=== PATIENT | female | born 2000 | race African-American/Black ===

== ENCOUNTER 2020-01-17 10:48 | Emergency (ER) | payer MEDICAID ==
[2020-01-17] MEDS ORDERED: Loperamide 2 MG Cap PO ONE (11:08)
[2020-01-17] MEDS ORDERED: Sodium Chloride 0.9% 1,000 ML IV ONE (11:08)
[2020-01-17] MEDS ORDERED: Ondansetron 4 MG/2 ML SDV IVPUSH ONE (11:08)
--- NOTE | 2020-01-17 11:12 | EDM.PDOC ---
ED HPI GENERAL MEDICAL PROBLEM - General Chief Complaint: Gastrointestinal Problem Stated Complaint: FOOD POISIONING Time Seen by Provider: 01/17/20 11:00 Source of Information: Reports: Patient History Limitations: Reports: No Limitations - History of Present Illness INITIAL COMMENTS - FREE TEXT/NARRATIVE: HISTORY AND PHYSICAL: History of present illness: Patient is a 19-year-old female who presents to the emergency room with complaints of nausea, vomiting, diarrhea. She reports last evening she was eating chicken at [employer] and shortly afterward started to develop symptoms. She feels like she is having to have bowel movements every 30 minutes. Concerned she has food poisoning. She has generalized abdominal pain which she attributes to having vomiting and diarrhea. Nonspecific in location. She also mentions she has a recently diagnosed teratoma tumor, she is taking Tramadol as needed for this pain. States she just ran out of her Tramadol today. Today's abd ominal pain is no worse than her chronic abdominal pain. Patient denies any fever, chills, headache, change in vision, syncope or near syncope. Denies any chest pain, back pain, shortness of breath or cough. Denies any constipation or dysuria. Has not noted any blood in urine or stool. Review of systems: As per history of present illness and below otherwise all systems reviewed and negative. Past medical history: As per history of present illness and as reviewed below otherwise noncontributory. Surgical history: As per history of present illness and as reviewed below otherwise noncontr ibutory. Social history: See social history for further information Family history: As per history of present illness and as reviewed below otherwise noncontributory. Physical exam: General: Well-developed and well-nourished 19-year-old female. Alert and oriented. Nontoxic-appearing and in no acute distress. HEENT: Atraumatic, normocephalic, pupils equal and reactive bilaterally, negative for conjunctival pallor or scleral icterus, mucous membranes moist, TMs normal bilaterally, throat clear, neck supple, nontender, trachea midline. No drooling or trismus noted. No meningeal signs. No hot potato voice noted. Lungs: Clear to auscultation, breath sounds equal bilaterally, chest nontender. Heart: S1S2, regular rate and rhythm without overt murmur Abdomen: Soft, nondistended, nontender. Negative for masses or hepatosplenomegaly. Negative for costovertebral tenderness. Skin: Intact, warm, dry. No lesions or rashes noted. Hematologic: No petechiae or purpra. Mucosa appropriate color and normal nail bed color and refill. Extremities: Atraumatic, moves all extremities per self without difficulty or deficits, negative for cords or calf pain. Neurovascular unremarkable. Neuro: Awake, alert, oriented. Cranial nerves II through XII unremarkable. Cerebellum unremarkable. Motor and sensory unremarkable throughout. Exam nonfocal. Notes: Improved after IV fluids and medication. She has not had any episodes of vomiting or diarrhea while here. Initially wanted to get a urine but she is asymptomatic and is currently declining wanting to provide a sample. Upon preparing her for discharge she does ask that I refill her tramadol which she has been taking for chronic abdominal pain. I encouraged her to establish care with a primary care provider for this medication refill. We will give her 1 tab while here. Patient is appropriate for discharge. Supportive care measures were reviewed and discussed. Voices understanding and is agreeable to plan of care. Denies any further questions or concerns at this time. Diagnostics: CBC, CMP, Lipase, Therapeutics: IV fluid, Zofran, Imodium Prescription: None Impression: Gastroenteritis Plan: 1. Please use Tylenol and/or Ibuprofen as needed for pain and fever management. 2. Get plenty of Rest. Encourage fluids to prevent dehydration. 3. Please follow up and establish care with a primary care provider. If your symptoms should worsen, new symptoms develop or any of the signs and symptoms we discussed should arise please return to the emergency room or call 911 (if needed). Definitive disposition and diagnosis as appropriate pending reevaluation and review of above. abdomen Pain Score (Numeric/FACES): 8 - Related Data Allergies Allergy/AdvReac Type Severity Reaction Status Date / Time No Known Allergies Allergy Verified 01/17/20 11:07 Home Meds: Home Meds . [No Known Home Meds] 01/17/20 [History] ED ROS GENERAL - Review of Systems Review Of Systems: Comprehensive ROS is negative, except as noted in HPI. ED EXAM, GI/ABD - Physical Exam Exam: See Below (See dictation) Course - Vital Signs Last Recorded V/S: Last Vital Signs Temp 96.0 F L 01/17/20 11:07 Pulse 81 01/17/20 11:07 Resp 18 01/17/20 11:07 BP 126/92 H 01/17/20 11:07 Pulse Ox 97 01/17/20 11:07 - Orders/Labs/Meds Orders: Active Orders 24 hr Category Date Time Status UA RFX ADELA AND CULT IF INDIC [URIN] Stat Lab 01/17/20 11:12 Ordered Sodium Chloride 0.9% [Normal Saline] 1,000 ml Med 01/17/20 11:08 Active IV STAT traMADol [Ultram] Med 01/17/20 12:06 Once 50 mg PO ONETIME ONE Medication Orders Sodium Chloride (Normal Saline) 1,000 mls @ 999 mls/hr IV STAT ONE Stop: 01/17/20 12:08 Last Admin: 01/17/20 11:22 Dose: 999 mls/hr Documented by: [facility] Labs: Laboratory Tests 01/17/20 01/17/20 Range/Units 11:25 11:25 WBC 9.10 (4.0-11.0) K/uL RBC 4.60 (4.30-5.90) M/uL Hgb 13.7 (12.0-16.0) g/dL Hct 40.3 (36.0-46.0) % MCV 87.6 (80.0-98.0) fL MCH 29.8 (27.0-32.0) pg MCHC 34.0 (31.0-37.0) g/dL RDW Std Deviation 41.0 (28.0-62.0) fl RDW Coeff of Molly 13 (11.0-15.0) % Plt Count 271 (150-400) K/uL MPV 9.50 (7.40-12.00) fL Neut % (Auto) 76.9 (48.0-80.0) % Lymph % (Auto) 14.5 L (16.0-40.0) % Gem % (Auto) 7.4 (0.0-15.0) % Eos % (Auto) 1.1 (0.0-7.0) % Baso % (Auto) 0.1 (0.0-1.5) % Neut # (Auto) 7.0 H (1.4-5.7) K/uL Lymph # (Auto) 1.3 (0.6-2.4) K/uL Gem # (Auto) 0.7 (0.0-0.8) K/uL Eos # (Auto) 0.1 (0.0-0.7) K/uL Baso # (Auto) 0.0 (0.0-0.1) K/uL Sodium 137 (136-145) mmol/L Potassium 3.9 (3.5-5.1) mmol/L Chloride 104 (98-107) mmol/L Carbon Dioxide 26.3 (21.0-32.0) mmol/L BUN 12 (7.0-18.0) mg/dL Creatinine 0.8 (0.6-1.0) mg/dL Est Cr Clr Drug Dosing 85.35 mL/min Estimated GFR (MDRD) > 60.0 ml/min Glucose 89 (74-106) mg/dL Calcium 8.5 (8.5-10.1) mg/dL Total Bilirubin 0.4 (0.2-1.0) mg/dL AST 18 (15-37) IU/L ALT 20 (14-63) IU/L Alkaline Phosphatase 96 (46-116) U/L Total Protein 8.4 H (6.4-8.2) g/dL Albumin 3.9 (3.4-5.0) g/dL Globulin 4.5 H (2.6-4.0) g/dL Albumin/Globulin Ratio 0.9 (0.9-1.6) Lipase 126 (73-393) U/L Meds: Medications Generic Name Dose Route Start Last Admin Trade Name Freq PRN Reason Stop Dose Admin Sodium Chloride 1,000 mls @ 999 mls/hr 01/17/20 11:08 01/17/20 11:22 Normal Saline IV 01/17/20 12:08 999 mls/hr STAT ONE Administration Discontinued Medications Generic Name Dose Route Start Last Admin Trade Name Freq PRN Reason Stop Dose Admin Loperamide HCl 2 mg 01/17/20 11:08 01/17/20 11:22 Imodium PO 01/17/20 11:09 2 mg ONETIME ONE Administration Ondansetron HCl 4 mg 01/17/20 11:08 01/17/20 11:22 Zofran IVPUSH 01/17/20 11:09 4 mg ONETIME ONE Administration Departure - Departure Time of Disposition: 12:09 Disposition: Home, Self-Care 01 Clinical Impression: Gastroenteritis - Discharge Information Instructions: Viral Gastroenteritis, Adult, [id number] Referrals: PCP,None [Primary Care Provider] - Forms: ED Department Discharge Additional Instructions: The following information is given to patients seen in the emergency department who are being discharged to home. This information is to outline your options for follow-up care. We provide all patients seen in our emergency department with a follow-up referral. The need for follow-up, as well as the timing and circumstances, are variable depending upon the specifics of your emergency department visit. If you don't have a primary care physician on staff, we will provide you with a referral. We always advise you to contact your personal physician following an emergency department visit to inform them of the circumstance of the visit and for follow-up with them and/or the need for any referrals to a consulting specialist. The emergency department will also refer you to a specialist when appropriate. This referral assures that you have the opportunity for follow-up care with a specialist. All of these measure are taken in an effort to provide you with optimal care, which includes your follow-up. Under all circumstances we always encourage you to contact your private physician who remains a resource for coordinating your care. When calling for follow-up care, please make the office aware that this follow-up is from your recent emergency room visit. If for any reason you are refused follow-up, please contact the [facility] Emergency Department at and asked to speak to the emergency department charge nurse. [facility] Primary Care [address] [place] [address] [id number] [address] [address] Thank you for choosing the [facility] emergency department in [place] for your medical needs today. It was a pleasure caring for you. Today you were seen in the emergency department for nausea, vomiting, diarrhea. 1. Please use Tylenol and/or Ibuprofen as needed for pain and fever management. 2. Get plenty of Rest. Encourage fluids to prevent dehydration. 3. Please follow up and establish care with a primary care provider. If your symptoms should worsen, new symptoms develop or any of the signs and symptoms we discussed should arise please return to the emergency room or call 911 (if needed). Sepsis Event Note (ED) - Focused Exam Vital Signs: Vital Signs Temp Pulse Resp BP Pulse Ox 01/17/20 11:07 96.0 F L 81 18 126/92 H 97 - My Orders Last 24 Hours: My Active Orders 01/17/20 11:08 Sodium Chloride 0.9% [Normal Saline] 1,000 ml IV STAT 01/17/20 11:12 UA RFX ADELA AND CULT IF INDIC [URIN] Stat 01/17/20 12:06 traMADol [Ultram] 50 mg PO ONETIME ONE - Assessment/Plan Last 24 Hours: My Active Orders 01/17/20 11:08 Sodium Chloride 0.9% [Normal Saline] 1,000 ml IV STAT 01/17/20 11:12 UA RFX ADELA AND CULT IF INDIC [URIN] Stat 01/17/20 12:06 traMADol [Ultram] 50 mg PO ONETIME ONE
[2020-01-17 11:47] LABS: BLOOD UREA NITROGEN,BUN 12 mg/dL (7.0-18.0); CARBON DIOXIDE,CO2 26.3 mmol/L (21.0-32.0); CHLORIDE,CL 104 mmol/L (98-107); GLUCOSE RANDOM 89 mg/dL (74-106); LIPASE 126 U/L (73-393); POTASSIUM,K 3.9 mmol/L (3.5-5.1); SODIUM,NA 137 mmol/L (136-145)
[2020-01-17] MEDS ORDERED: traMADol 50 MG Tab PO ONE (12:06)
== END 2020-01-17 12:25 | disposition home or self-care (01) ==
LOC: MW.ED 10:48
DX: K52.9 Noninfective gastroenteritis and colitis, unspecified (principal)
CPT/HCPCS: 36415; 80053; 83690; 85025; 96361; 96374; 99284; A9270; J2405; J7030; 99283

== ENCOUNTER 2020-04-27 15:43 | Emergency (ER) | payer MEDICAID ==
[2020-04-27] MEDS ORDERED: Ondansetron 4 MG Tab.DIS PO ONE (16:07)
--- NOTE | 2020-04-27 16:52 | EDM.PDOC ---
<Marvin Jasso - Last Filed: 04/27/20 18:55> ED HPI GENERAL MEDICAL PROBLEM - General Chief Complaint: Abdominal Pain Stated Complaint: ABDOMINAL PAIN Time Seen by Provider: 04/27/20 15:54 Source of Information: Reports: Patient History Limitations: Reports: No Limitations - History of Present Illness INITIAL COMMENTS - FREE TEXT/NARRATIVE: Patient is a 19-year-old female presents today for left lower quadrant pain. Patient explains been there for the past few days. Patient also have some nausea vomiting diarrhea. Her and her boyfriend experiencing the same symptoms but the denied any new restaurants or antibiotic use or recent travel. Patient denies any vaginal discharge or bleeding or urinary symptoms. abdomen Pain Score (Numeric/FACES): 9 - Related Data Allergies Allergy/AdvReac Type Severity Reaction Status Date / Time No Known Allergies Allergy Verified 04/27/20 15:57 Home Meds: Home Meds Naproxen [EC-Naproxen] 500 mg PO BID #10 tablet. 04/27/20 [Rx] Past Medical History HEENT History: Reports: None Cardiovascular History: Reports: None Respiratory History: Reports: Asthma Gastrointestinal History: Reports: Other (See Below) Other Gastrointestinal History: LLQ Teratoma Genitourinary History: Reports: None HYDRAULICS ENGINEER History: Reports: None Musculoskeletal History: Reports: None Neurological History: Reports: None Psychiatric History: Reports: None Endocrine/Metabolic History: Reports: None Hematologic History: Reports: None Immunologic History: Reports: None Oncologic (Cancer) History: Reports: None Dermatologic History: Reports: None - Infectious Disease History Infectious Disease History: Reports: None - Past Surgical History Head Surgeries/Procedures: Reports: None HEENT Surgical History: Reports: None Cardiovascular Surgical History: Reports: None Respiratory Surgical History: Reports: None GI Surgical History: Reports: None Female Surgical History: Reports: None Endocrine Surgical History: Reports: None Neurological Surgical History: Reports: None Musculoskeletal Surgical History: Reports: None Oncologic Surgical History: Reports: None Dermatological Surgical History: Reports: None Social & Family History - Family History Family Medical History: No Pertinent Family History - Tobacco Use Tobacco Use Status *Q: Never Tobacco User - Caffeine Use Caffeine Use: Reports: None - Recreational Drug Use Recreational Drug Use: Yes Recreational Drug Type: Reports: Marijuana/Hashish Recreational Drug Use Frequency: Socially ED ROS GENERAL - Review of Systems Constitutional: Reports: No Symptoms HEENT: Reports: No Symptoms Respiratory: Reports: No Symptoms Cardiovascular: Reports: No Symptoms Endocrine: Reports: No Symptoms GI/Abdominal: Reports: Abdominal Pain, Diarrhea, Nausea, Vomiting : Reports: No Symptoms Musculoskeletal: Reports: No Symptoms Skin: Reports: No Symptoms Neurological: Reports: No Symptoms Psychiatric: Reports: No Symptoms Hematologic/Lymphatic: Reports: No Symptoms Immunologic: Reports: No Symptoms ED EXAM, GENERAL - Physical Exam Exam: See Below Exam Limited By: No Limitations General Appearance: Alert, No Apparent Distress Ears: Normal External Exam Respiratory/Chest: No Respiratory Distress, Lungs Clear Cardiovascular: Regular Rate, Rhythm GI/Abdominal: Normal Bowel Sounds, Soft, Non-Tender Extremities: Normal Inspection Neurological: Alert, Oriented, CN II-XII Intact Skin Exam: Warm Course - Re-Assessments/Exams Free Text/Narrative Re-Assessment/Exam: 04/27/20 18:[address] scan shows a mass in the left lower quadrant radiology recommend getting ultrasound with obtain ultrasound. Patient will be signed out to oncoming attending ultrasound pending disposition. Departure - Departure Disposition: Home, Self-Care 01 Clinical Impression: Abdominal pain, Teratoma of left ovary - Discharge Information Prescriptions: Naproxen [EC-Naproxen] 500 mg PO BID #10 tablet.dr Instructions: Ovarian Tumors, Abdominal Pain, Adult, [id number] Referrals: PCP,None [Primary Care Provider] - 3 Days Forms: ED Department Discharge Additional Instructions: The need for follow-up, as well as the timing and circumstances, are variable depending upon the specifics of your emergency department visit. If you don't have a primary care physician on staff, we will provide you with a referral. We always advise you to contact your personal physician following an emergency department visit to inform them of the circumstance of the visit and for follow-up with them and/or the need for any referrals to a consulting specialist. The emergency department will also refer you to a specialist when appropriate. This referral assures that you have the opportunity for follow-up care with a specialist. All of these measure are taken in an effort to provide you with optimal care, which includes your follow-up. Under all circumstances we always encourage you to contact your private physician who remains a resource for coordinating your care. When calling for follow-up care, please make the office aware that this follow-up is from your recent emergency room visit. If for any reason you are refused follow-up, please contact the [facility] Emergency Department at and asked to speak to the emergency department charge nurse. If you do not have a primary care doctor, please follow up with the clinics below within 3-5 days. [facility]AULICS ENGINEER clinics [facility] [address] [place] [id number] [facility] [address] [place] [id number] Sepsis Event Note (ED) - Evaluation Sepsis Screening Result: No Definite Risk - Assessment/Plan Plan: She is a 19-year-old female who presents today for left lower quadrant pain. Patient also has some nausea vomiting. Patient mention she had a history of a teratoma in the left lower quadrant. Patient boyfriend also experiencing same symptoms. Will obtain labs give IV fluid and CT scan. <Dominic Leal - Last Filed: 04/27/20 20:51> ED ROS GENERAL - Review of Systems Review Of Systems: See Below Course - Vital Signs Last Recorded V/S: Last Vital Signs Temp 96.8 F L 04/27/20 15:54 Pulse 66 04/27/20 15:54 Resp 16 04/27/20 15:54 BP 100/71 04/27/20 15:54 Pulse Ox 99 04/27/20 15:54 - Orders/Labs/Meds Orders: Active Orders 24 hr Category Date Time Status CHLAMYDIA AND GONORRHEA BY TMA Stat Lab 04/27/20 16:06 Received Labs: Laboratory Tests 04/27/20 04/27/20 04/27/20 Range/Units 16:06 16:06 16:35 WBC 8.81 (4.0-11.0) K/uL RBC 4.56 (4.30-5.90) M/uL Hgb 13.4 (12.0-16.0) g/dL Hct 41.0 (36.0-46.0) % MCV 89.9 (80.0-98.0) fL MCH 29.4 (27.0-32.0) pg MCHC 32.7 (31.0-37.0) g/dL RDW Std Deviation 44.8 (28.0-62.0) fl RDW Coeff of Molly 14 (11.0-15.0) % Plt Count 260 (150-400) K/uL MPV 9.60 (7.40-12.00) fL Neut % (Auto) 66.9 (48.0-80.0) % Lymph % (Auto) 22.8 (16.0-40.0) % [place] % (Auto) 8.2 (0.0-15.0) % Eos % (Auto) 2.0 (0.0-7.0) % Baso % (Auto) 0.1 (0.0-1.5) % Neut # (Auto) 5.9 H (1.4-5.7) K/uL Lymph # (Auto) 2.0 (0.6-2.4) K/uL [place] # (Auto) 0.7 (0.0-0.8) K/uL Eos # (Auto) 0.2 (0.0-0.7) K/uL Baso # (Auto) 0.0 (0.0-0.1) K/uL Nucleated RBC % 0.0 /100WBC Nucleated RBCs # 0 K/uL Sodium (136-145) mmol/L Potassium (3.5-5.1) mmol/L Chloride (98-107) mmol/L Carbon Dioxide (21.0-32.0) mmol/L BUN (7.0-18.0) mg/dL Creatinine (0.6-1.0) mg/dL Est Cr Clr Drug Dosing mL/min Estimated GFR (MDRD) ml/min Glucose (74-106) mg/dL Calcium (8.5-10.1) mg/dL Total Bilirubin (0.2-1.0) mg/dL AST (15-37) IU/L ALT (14-63) IU/L Alkaline Phosphatase (46-116) U/L Total Protein (6.4-8.2) g/dL Albumin (3.4-5.0) g/dL Globulin (2.6-4.0) g/dL Albumin/Globulin Ratio (0.9-1.6) Lipase (73-393) U/L Urine Color YELLOW Urine Appearance CLEAR Urine pH 6.0 (5.0-8.0) Ur Specific [place] >= 1.030 (1.001-1.035) Urine Protein NEGATIVE (NEGATIVE) mg/dL Urine Glucose (UA) NEGATIVE (NEGATIVE) mg/dL Urine Ketones NEGATIVE (NEGATIVE) mg/dL Urine Occult Blood NEGATIVE (NEGATIVE) Urine Nitrite NEGATIVE (NEGATIVE) Urine Bilirubin NEGATIVE (NEGATIVE) Urine Urobilinogen 0.2 (<2.0) EU/dL Ur Leukocyte Esterase NEGATIVE (NEGATIVE) Urine HCG, Qual NEGATIVE (NEGATIVE) 04/27/20 Range/Units 16:35 WBC (4.0-11.0) K/uL RBC (4.30-5.90) M/uL Hgb (12.0-16.0) g/dL Hct (36.0-46.0) % MCV (80.0-98.0) fL MCH (27.0-32.0) pg MCHC (31.0-37.0) g/dL RDW Std Deviation (28.0-62.0) fl RDW Coeff of Molly (11.0-15.0) % Plt Count (150-400) K/uL MPV (7.40-12.00) fL Neut % (Auto) (48.0-80.0) % Lymph % (Auto) (16.0-40.0) % [place] % (Auto) (0.0-15.0) % Eos % (Auto) (0.0-7.0) % Baso % (Auto) (0.0-1.5) % Neut # (Auto) (1.4-5.7) K/uL Lymph # (Auto) (0.6-2.4) K/uL [place] # (Auto) (0.0-0.8) K/uL Eos # (Auto) (0.0-0.7) K/uL Baso # (Auto) (0.0-0.1) K/uL Nucleated RBC % /100WBC Nucleated RBCs # K/uL Sodium 141 (136-145) mmol/L Potassium 4.9 (3.5-5.1) mmol/L Chloride 106 (98-107) mmol/L Carbon Dioxide 29.1 (21.0-32.0) mmol/L BUN 9 (7.0-18.0) mg/dL Creatinine 0.8 (0.6-1.0) mg/dL Est Cr Clr Drug Dosing 85.35 mL/min Estimated GFR (MDRD) > 60.0 ml/min Glucose 85 (74-106) mg/dL Calcium 9.4 (8.5-10.1) mg/dL Total Bilirubin 0.4 (0.2-1.0) mg/dL AST 18 (15-37) IU/L ALT 23 (14-63) IU/L Alkaline Phosphatase 98 (46-116) U/L Total Protein 8.0 (6.4-8.2) g/dL Albumin 3.7 (3.4-5.0) g/dL Globulin 4.3 H (2.6-4.0) g/dL Albumin/Globulin Ratio 0.9 (0.9-1.6) Lipase 100 (73-393) U/L Urine Color Urine Appearance Urine pH (5.0-8.0) Ur Specific [place] (1.001-1.035) Urine Protein (NEGATIVE) mg/dL Urine Glucose (UA) (NEGATIVE) mg/dL Urine Ketones (NEGATIVE) mg/dL Urine Occult Blood (NEGATIVE) Urine Nitrite (NEGATIVE) Urine Bilirubin (NEGATIVE) Urine Urobilinogen (<2.0) EU/dL Ur Leukocyte Esterase (NEGATIVE) Urine HCG, Qual (NEGATIVE) Meds: Medications Discontinued Medications Generic Name Dose Route Start Last Admin Trade Name Freq PRN Reason Stop Dose Admin Iopamidol 100 ml 04/27/20 17:36 04/27/20 17:36 Isovue Multipack-370 (76%) IVPUSH 04/27/20 17:37 100 ml ONETIME STA Administration Ondansetron HCl 4 mg 04/27/20 16:07 04/27/20 16:19 Zofran Odt PO 04/27/20 16:08 4 mg ONETIME ONE Administration - Re-Assessments/Exams Free Text/Narrative Re-Assessment/Exam: 04/27/20 190 This patient was signed out to me from Dr. Marvin Jasso at this time. I promptly performed a detailed physical examination, my examination was performed after ED treatments were initiated by the signout provider. Patient has been under the care of the previous provider up until this point. She is a 19-year-old female with history of left ovarian teratoma who recently moved here from [place] in November presents with diffuse abdominal pain since last night. Associated with vaginal discharge, nausea, vomiting, diarrhea. She denies fever, chills, dysuria. She has had intermittent left lower quadrant pain since October after she was diagnosed with a teratoma, pain has been waxing and waning. She currently does not have a PCP or HYDRAULICS ENGINEER. Her LMP = 04/02. She is sexually active with her boyfriend unprotected and would like to be tested for STD. ROS: A 10-point review of systems, other than pertinent positives and negatives as stated per HPI, is otherwise negative Past medical history: No additional pertinent history Past Surgical history: No additional pertinent history Social history: No additional pertinent history Family history: No additional pertinent history PHYSICAL EXAM General: AOx4, GCS = 15, No distress HEENT: dry mucous membrane Neck: supple, no meningismus, no Kernig or Brudzinski Cardiac: S1S2 RRR Respiratory: CTAB, no crackles or rales, no wheezing Abdomen: Soft, LLQ ttp no rebound or guarding, nondistended, no pulsatile mass. Back: nontender Musculoskeletal: NVI distally, no deformity Neuro: No focal deficits, CN 2 - 12 WNL. 04/27/20 20:50 After prolonged observation in the ER, the patient improved and is currently stable for discharge. I performed a repeat exam and did not appreciate new abnormal findings. Patient exhibits normal vital signs and has a normal gait on road test. I advised the patient to return to the ER for reevaluation if symptoms worsened, including fever, worsening pain, or any other worrisome symptoms. I instructed the patient to follow up with [facility] within 2-3 days. MEDICAL DECISION MAKING: I reviewed the patients past medical records, lab and radiographic findings. I discussed the case with the patient. My differential diagnosis included: Teratoma, ovarian torsion, pid. GC chlamydia culture sent. Ultrasound did not demonstrate ovarian torsion. She recently moved here from [place] and does not have gynecological follow-up in [facility]. She is stable for outpatient follow-up with HYDRAULICS ENGINEER for further assessment of her left ovary findings today. Departure - Departure Time of Disposition: 20:49 Condition: Good - Discharge Information *PRESCRIPTION DRUG MONITORING PROGRAM REVIEWED*: Not Applicable *COPY OF PRESCRIPTION DRUG MONITORING REPORT IN PATIENT CLAUDIA: Not Applicable Sepsis Event Note (ED) - Focused Exam Vital Signs: Vital Signs Temp Pulse Resp BP Pulse Ox 04/27/20 15:54 96.8 F L 66 16 100/71 99
[2020-04-27 17:04] LABS: BLOOD UREA NITROGEN,BUN 9 mg/dL (7.0-18.0); CARBON DIOXIDE,CO2 29.1 mmol/L (21.0-32.0); CHLORIDE,CL 106 mmol/L (98-107); GLUCOSE RANDOM 85 mg/dL (74-106); LIPASE 100 U/L (73-393); POTASSIUM,K 4.9 mmol/L (3.5-5.1); SODIUM,NA 141 mmol/L (136-145)
[2020-04-27] MEDS ORDERED: Iopamidol 755 MG/ML 500 ML Multipack Bottle IVPUSH STA (17:36)
--- NOTE | 2020-04-27 18:28 | CT ---
INDICATION: History of abdominal pain. Left lower quadrant pain COMPARISON: None TECHNIQUE: CT examination of the abdomen and pelvis was performed following the uneventful intravenous administration of 100 cc of Isovue 370. Thin section axial images were obtained from the lung bases through the pubic symphysis. Oral contrast was not administered. Please note that all CT scans at this facility use dose modulation, iterative reconstruction, and/or weight-based dosing when appropriate to reduce radiation dose to as low as reasonably achievable. FINDINGS: LUNG BASES: The lung bases as visualized appear normal.The heart size is normal at the lung bases. LIVER/BILIARY SYSTEM:The liver is normal in size and configuration. There is no focal mass and there is no intra- or extra hepatic biliary ductal dilatation.The gall bladder appears normal. ADRENALS: Normal KIDNEYS, URETERS and BLADDER:The kidneys appear normal. No visible mass, calculus or hydronephrosis. The ureters and bladder as visualized appear normal. SPLEEN:Normal appearance. PANCREAS: Appears normal. RETROPERITONEUM and MESENTERY: There is no mass, adenopathy or aortic aneurysm. GASTROINTESTINAL SYSTEM: There is no evidence of diverticulitis, colitis, mechanical obstruction, or appendicitis. The small bowel as visualized appears normal. PELVIS: There is a small amount of free fluid in the pelvis. This is more notable on the right than on the left. There is a fat containing structure in the left adnexum measuring about 2.8 centimeters which probably represents a dermoid.. OSSEOUS STRUCTURES and ABDOMINAL WALL: There is an age-appropriate appearance of the osseous structures.No significant abdominal wall defect. OTHER: No free fluid or free air. IMPRESSION: 1. There is a small amount of free fluid in the pelvis, especially on the right. 2. There is a fat containing left adnexal mass measuring about 2.8 centimeters which likely represents a dermoid. Since pain is referable to this area and this study is otherwise unremarkable, sonography is recommended including Doppler. Please note that all CT scans at this facility use dose modulation, iterative reconstruction, and/or weight-based dosing when appropriate to reduce radiation dose to as low as reasonably achievable. Dictated by Delon Camarena MD @ Apr 27 2020 6:14PM Signed by Dr. Delon Camarena @ Apr 27 2020 6:26PM
--- NOTE | 2020-04-27 19:41 | US ---
INDICATION: Left lower quadrant pain, left-sided dermoid tumor seen on CT done earlier today TECHNIQUE: Ultrasound pelvis transabdominal and transvaginal for better assessment or to better visualize the endometrium. Real-time sonographic images with spectral and color Doppler imaging of the ovaries were obtained. COMPARISON: CT abdomen pelvis from earlier today FINDINGS: Uterus: 7.5 x 2.9 x 4.4 cm. Normal echotexture of the myometrium. No masses. Endometrium: Transvaginal imaging was performed to better evaluate the endometrium. 10 mm in thickness. No sign of endometrial mass or fluid. Right ovary: 3.6 x 2.9 x 1.8 cm. No ovarian or adnexal masses. Normal arterial and venous blood flow. Left ovary: 3.5 x 3.0 x 1.9 cm. A 2.0 cm mass is seen on the left ovary. Normal arterial and venous blood flow. Cul-de-sac: No significant free fluid. IMPRESSION: Left ovarian dermoid tumor. No evidence for torsion. No acute abnormality identified. Dictated by Izabel Eugene MD @ Apr 27 2020 7:39PM Signed by Dr. Izabel Eugene @ Apr 27 2020 7:39PM
[2020-05-01 15:07] LABS: C.TRACHOMATIS BY TMA Positive (Negative); N.GONORRHOEAE BY TMA Negative (Negative)
--- NOTE | 2020-05-02 09:14 | PCM.SN.2 ---
- Free Text/Narrative Note: Patient's chlamydia test came back positive. I did contact the patient at [phone] and discussed the results with the patient. I did discuss with her that I did send the prescription to treat the chlamydia to her pharmacy and that she need to pick it up today. I discussed with her that she needs to let her partner know and that to send him to the emergency department for treatment. I also discussed with her that if she were to have worsening pain, vaginal discharge, fever she needs to return to the emergency department herself. She did express understanding.
== END 2020-04-27 21:20 | disposition home or self-care (01) ==
LOC: MW.ED 15:43
DX: D27.1 Benign neoplasm of left ovary (principal); J45.909 Unspecified asthma, uncomplicated
CPT/HCPCS: 36415; 74177; 76856; 80053; 81003; 81025; 83690; 85025; 87491; 87591; 99284; A9270; Q9967; 99283

== ENCOUNTER 2020-06-24 11:39 | Emergency (ER) | payer MEDICAID ==
[2020-06-24 12:50] LABS: CORONAVIRUS COVID-19 NAA NEGATIVE (NEGATIVE); INFLUENZA A NAA NEGATIVE (NEGATIVE); INFLUENZA B NAA NEGATIVE (NEGATIVE)
--- NOTE | 2020-06-24 12:56 | EDM.PDOC ---
ED HPI GENERAL MEDICAL PROBLEM - General Chief Complaint: General Stated Complaint: FLU SYMTOPMS Time Seen by Provider: 06/24/20 11:41 Source of Information: Reports: Patient History Limitations: Reports: No Limitations - History of Present Illness INITIAL COMMENTS - FREE TEXT/NARRATIVE: HISTORY AND PHYSICAL: History of present illness: Patient is a 19-year-old female who presents emergency room today with concern of generalized body aches, nausea, and feeling warm today. Patient states she has not checked a temperature at home. Patient states that she is concerned about possible COVID-19 infection. Patient states that she has felt nauseous yesterday and today and states that there is a chance of so is unsure if this is related or possible COVID-19 infection. Patient denies any abdominal pain, cramping, or discomfort. Patient denies any vaginal bleeding or discharge. Patient denies any other symptoms or concerns. Patient denies fever, chills, chest pain, shortness of breath, or cough. Denies headache, neck stiff ness, change in vision, syncope, or near syncope. Denies vomiting, abdominal pain, diarrhea, constipation, or dysuria. Has not noted any blood in urine or stool. Patient has been eating and drinking appropriately. Review of systems: As per history of present illness and below otherwise all systems reviewed and negative. Past medical history: As per history of present illness and as reviewed below otherwise noncontributory. Surgical history: As per history of present illness and as reviewed below otherwise noncontr ibutory. Social history: See social history for further information Family history: As per history of present illness and as reviewed below otherwise noncontributory. Physical exam: General: Patient is alert, oriented, and in no acute distress. Patient sitting comfortably on exam table. Vitals stable and reviewed by me. HEENT: Atraumatic, normocephalic, pupils equal and reactive bilaterally, negative for conjunctival pallor or scleral icterus, mucous membranes moist, TMs normal bilaterally, throat clear, neck supple, nontender, trachea midline. No drooling or trismus noted. No meningeal signs. No hot potato voice noted. Lungs: Clear to auscultation, breath sounds equal bilaterally, chest nontender. Heart: S1S2, regular rate and rhythm without overt murmur Abdomen: Soft, nondistended, nontender. Negative for masses or hepatosplenomegaly. Negative for costovertebral tenderness. Pelvis: Stable nontender. Genitourinary: Deferred. Rectal: Deferred. Skin: Intact, warm, dry. No lesions or rashes noted. Extremities: Atraumatic, negative for cords or calf pain. Neurovascular unremarkable. Neuro: Awake, alert, oriented. Cranial nerves II through XII unremarkable. Cerebellum unremarkable. Motor and sensory unremarkable throughout. Exam nonfocal. Notes: Signs and symptoms that would prompt return to the ED thoroughly discussed with patient. Discussed importance for follow-up with primary care provider. Voices understanding and is agreeable to plan of care. Denies any further questions or concerns at this time. Diagnostics: urine hcg, COVID/FLUA/B Therapeutics: None Prescription: None Impression: Flu-like symptoms Plan: 1. You can alternate ibuprofen and Tylenol as directed for pain and discomfort. 2. Follow-up with primary care provider as discussed. Return to the ED as needed and as discussed. Definitive disposition and diagnosis as appropriate pending reevaluation and review of above. - Related Data Allergies Allergy/AdvReac Type Severity Reaction Status Date / Time No Known Allergies Allergy Verified 06/24/20 11:56 Home Meds: Home Meds . 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 Other DEVICE TEST ENGINEER History: tumor on left ovary Musculoskeletal History: Reports: None Neurological History: Reports: None Psychiatric History: Reports: None Endocrine/Metabolic History: Reports: None Hematologic History: Reports: None Immunologic History: Reports: None Oncologic (Cancer) History: Reports: None Dermatologic History: Reports: None - Infectious Disease History Infectious Disease History: Reports: None - Past Surgical History Head Surgeries/Procedures: Reports: None HEENT Surgical History: Reports: None Cardiovascular Surgical History: Reports: None Respiratory Surgical History: Reports: None GI Surgical History: Reports: None Female Surgical History: Reports: None Endocrine Surgical History: Reports: None Neurological Surgical History: Reports: None Musculoskeletal Surgical History: Reports: None Oncologic Surgical History: Reports: None Dermatological Surgical History: Reports: None Social & Family History - Family History Family Medical History: No Pertinent Family History - Caffeine Use Caffeine Use: Reports: None - Recreational Drug Use Recreational Drug Use: Yes Recreational Drug Type: Reports: Marijuana/Hashish ED ROS GENERAL - Review of Systems Review Of Systems: Comprehensive ROS is negative, except as noted in HPI. ED EXAM, GENERAL - Physical Exam Exam: See Below (See dictation) Course - Vital Signs Last Recorded V/S: Last Vital Signs Temp 96.6 F L 06/24/20 13:20 Pulse 69 06/24/20 13:20 Resp 16 06/24/20 11:54 BP 105/60 06/24/20 13:20 Pulse Ox 100 06/24/20 13:20 - Orders/Labs/Meds Labs: Laboratory Tests 06/24/20 06/24/20 Range/Units 12:01 12:01 Urine HCG, Qual NEGATIVE (NEGATIVE) Influenza Type A RNA NEGATIVE (NEGATIVE) Influenza Type B RNA NEGATIVE (NEGATIVE) SARS-CoV-2 RNA (RAMBO) NEGATIVE (NEGATIVE) Departure - Departure Time of Disposition: 12:55 Disposition: Home, Self-Care 01 Clinical Impression: Flu-like symptoms - Discharge Information Instructions: Viral Illness, Adult Referrals: Celestina Chen MD [Primary Care Provider] - Forms: ED Department Discharge Additional Instructions: The following information is given to patients seen in the emergency department who are being discharged to home. This information is to outline your options for follow-up care. We provide all patients seen in our emergency department with a follow-up referral. The need for follow-up, as well as the timing and circumstances, are variable depending upon the specifics of your emergency department visit. If you don't have a primary care physician on staff, we will provide you with a referral. We always advise you to contact your personal physician following an emergency department visit to inform them of the circumstance of the visit and for follow-up with them and/or the need for any referrals to a consulting specialist. The emergency department will also refer you to a specialist when appropriate. This referral assures that you have the opportunity for follow-up care with a specialist. All of these measure are taken in an effort to provide you with optimal care, which includes your follow-up. Under all circumstances we always encourage you to contact your private physician who remains a resource for coordinating your care. When calling for follow-up care, please make the office aware that this follow-up is from your recent emergency room visit. If for any reason you are refused follow-up, please contact the [facility] Emergency Department at and asked to speak to the emergency department charge nurse. [facility] [address] [place] [address] [address] 1. You can alternate ibuprofen and Tylenol as directed for pain and discomfort. 2. Follow-up with primary care provider as discussed. Return to the ED as needed and as discussed. Sepsis Event Note (ED) - Evaluation Sepsis Screening Result: No Definite Risk - Focused Exam Vital Signs: Vital Signs Temp Pulse Resp BP Pulse Ox 06/24/20 13:20 96.6 F L 69 105/60 100 06/24/20 11:54 96.8 F L 73 16 106/61 99
== END 2020-06-24 13:20 | disposition home or self-care (01) ==
LOC: MW.ED 11:39
DX: R11.0 Nausea (principal); R52 Pain, unspecified; J45.909 Unspecified asthma, uncomplicated; Z20.822 Contact with and (suspected) exposure to COVID-19
CPT/HCPCS: 0240U; 81025; 99283; 99282

== ENCOUNTER 2020-10-26 00:06 | Emergency (ER) | payer MEDICAID ==
--- NOTE | 2020-10-26 01:05 | EDM.PDOC ---
ED HPI GENERAL MEDICAL PROBLEM - General Chief Complaint: Respiratory Problem Stated Complaint: POSSIBLE COVID Time Seen by Provider: 10/26/20 00:48 - History of Present Illness INITIAL COMMENTS - FREE TEXT/NARRATIVE: HISTORY AND PHYSICAL: History of present illness: This is a 20-year-old female with a history significant for asthma who presents ER today secondary to signs and symptoms consistent with coronavirus infection. Patient's significant other who she lives with himself with tested positive for coronavirus today. Patient reports that her symptoms started 1 to 2 days ago. Patient reports fevers, nausea, vomiting, diarrhea, loss of taste, headaches, sore throat, diffuse myalgias. Patient denies any history of immunocompromise state. Patient is not on any chronic steroid. Patient reports nonproductive cough. Review of systems: As per history of present illness and below otherwise all systems reviewed and negative. Past medical history: As per history of present illness and as reviewed below otherwise noncontributory. Surgical history: As per history of present illness and as reviewed below otherwise noncontributory. Social history: No reported history of drug abuse. Family history: As per history of present illness and as reviewed below otherwise noncontributory. Physical exam: This patient was seen and evaluated during the 2019 SARS-CoV-2 novel coronavirus pandemic period. Community viral transmission is ongoing at time of this encounter and the emergency department is operating under pandemic response procedures. Constitutional: Patient is oriented to person, place, and time. Appears well- developed and well-nourished. No distress. HEENT: Moist mucous membranes Head: Normocephalic and atraumatic Eyes: Right eye exhibits no discharge. Left eye exhibits no discharge. No scleral icterus Neck: Normal range of motion. No tracheal deviation present. Cardiovascular: Normal rate and regular rhythm. Pulmonary: Effort normal, no respiratory distress. Abdominal: No distention Musculoskeletal: Normal range of motion Neurologic: Alert and oriented to person, place and time. Skin: [place], warm and dry. Psychiatric: Normal mood and affect. Behavior is normal. Judgment and thought content normal. Nursing note and vital signs have been reviewed Diagnostics: Pulse ox 99% on room air: Normal Therapeutics: Covid test: Assessment and plan: This is a 20-year-old female who presents ER today with signs and symptoms consistent with coronavirus infection. Patient significant other whom she lives with tested positive today for coronavirus as well. Patient's pulse ox is 99% on room air. Patient is clinically and hemodynamically stable and at this time does not meet criteria for inpatient level or observation level of care for coronavirus infection. Patient did have a coronavirus test done but regardless of the result, I think we need to assume that she is positive given her close contact that she will need to maintain quarantine/isolation for a least a 10- day. Reassessment at the time of disposition demonstrates that the patient is in no acute distress. The patient has remained stable throughout the entire ED visit and is without objective evidence for acute process requiring urgent intervention or hospitalization. The patient is stable for discharge, counseling is provided as documented above, discussed symptomatic treatment and specific c onditions for return. I have spoken with the patient/caregiver and discussed todays findings, in addition to providing specific details for the plan of care. Questions are answered and there is agreement with the plan. Definitive disposition and diagnosis as appropriate pending reevaluation and review of above. head Pain Score (Numeric/FACES): 9 - Related Data Allergies Allergy/AdvReac Type Severity Reaction Status Date / Time No Known Allergies Allergy Verified 06/24/20 11:56 Home Meds: Home Meds . 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 Other CUTTER ALUMINUM SHEET History: tumor on left ovary Musculoskeletal History: Reports: None Neurological History: Reports: None Psychiatric History: Reports: None Endocrine/Metabolic History: Reports: None Hematologic History: Reports: None Immunologic History: Reports: None Oncologic (Cancer) History: Reports: None Dermatologic History: Reports: None - Infectious Disease History Infectious Disease History: Reports: None - Past Surgical History Head Surgeries/Procedures: Reports: None HEENT Surgical History: Reports: None Cardiovascular Surgical History: Reports: None Respiratory Surgical History: Reports: None GI Surgical History: Reports: None Female Surgical History: Reports: None Endocrine Surgical History: Reports: None Neurological Surgical History: Reports: None Musculoskeletal Surgical History: Reports: None Oncologic Surgical History: Reports: None Dermatological Surgical History: Reports: None Social & Family History - Family History Family Medical History: No Pertinent Family History - Tobacco Use Tobacco Use Status *Q: Never Tobacco User Second Hand Smoke Exposure: No - Caffeine Use Caffeine Use: Reports: None - Recreational Drug Use Recreational Drug Use: No ED ROS GENERAL - Review of Systems Review Of Systems: See Below ED EXAM, GENERAL - Physical Exam Exam: See Below Course - Vital Signs Last Recorded V/S: Last Vital Signs Temp 98.0 F 10/26/20 00:19 Pulse 64 10/26/20 00:19 Resp 20 10/26/20 00:19 BP 122/74 10/26/20 00:19 Pulse Ox 99 10/26/20 00:19 - Orders/Labs/Meds Labs: Laboratory Tests 10/26/20 10/26/20 10/26/20 Range/Units 00:30 00:30 00:30 Urine Color YELLOW Urine Appearance SLT CLOUDY Urine pH 5.5 (5.0-8.0) Ur Specific [place] >= 1.030 (1.001-1.035) Urine Protein NEGATIVE (NEGATIVE) mg/dL Urine Glucose (UA) NEGATIVE (NEGATIVE) mg/dL Urine Ketones NEGATIVE (NEGATIVE) mg/dL Urine Occult Blood NEGATIVE (NEGATIVE) Urine Nitrite NEGATIVE (NEGATIVE) Urine Bilirubin NEGATIVE (NEGATIVE) Urine Urobilinogen 0.2 (<2.0) EU/dL Ur Leukocyte Esterase NEGATIVE (NEGATIVE) Urine HCG, Qual NEGATIVE (NEGATIVE) SARS-CoV-2 RNA (RAMBO) POSITIVE H (NEGATIVE) Departure - Departure Time of Disposition: 01:03 Disposition: Home, Self-Care 01 Condition: Good Clinical Impression: Exposure to COVID-19 virus, COVID-19 virus infection - Discharge Information Instructions: COVID-19: What Your Test Results Mean - CDC, COVID-19 Frequently Asked Questions, 10 Things You Can Do to Manage Your COVID-19 Symptoms at Home - CDC, COVID-19: Quarantine vs. Isolation - CDC, Prevent the Spread of COVID-19 if You Are Sick - CDC Referrals: Celestina Chen MD [Primary Care Provider] - Forms: ED Department Discharge Additional Instructions: You were seen and evaluated in the ER today secondary to signs and symptoms consistent with coronavirus. Your Covid test today was positive. At this time, your oxygen level is 99%. Please keep an eye on your oxygen level over the next couple days. You should purchase a pulse oximeter so that he can keep an eye on your oxygen level. If it drops below 90% you should return to the ED for further evaluation. Please return the ER if you start having worsening shortness of breath or any other new or concerning symptoms. You should take Tylenol and ibuprofen as needed for fevers. You will need to isolate for 10 days from symptom onset. 1. Your COVID-19 screening is positive. That means you do have the coronavirus and you are considered contagious. Your vital signs and oxygen saturation are well enough that you were able to monitor your symptoms at home. Continue to monitor for trouble breathing, new confusion or inability to arouse, bluish lips or face or any of the other symptoms we discussed -if this occurs please return to the emergency room. 2. Please self quarantine over the next 10 days. Inform any persons that you have been in contact with since you started becoming symptomatic that you have tested positive; they should be made aware and take the appropriate steps as needed. 3. You can take NyQuil during the evening to help get a restful night sleep. May alternate Tylenol and ibuprofen as needed for pain and fever management. 4. [facility] will be calling you and following up with you. The [place] COVID 19 Hotline phone number , They are open Friday - Friday 7am - 7pm. Follow up with your primary care provider for re-evaluation and re-testing after the 10 day quarantine and discuss when you should be seen. The following information is given to patients seen in the emergency department who are being discharged to home. This information is to outline your options for follow-up care. We provide all patients seen in our emergency department with a follow-up referral. The need for follow-up, as well as the timing and circumstances, are variable depending upon the specifics of your emergency department visit. If you don't have a primary care physician on staff, we will provide you with a referral. We always advise you to contact your personal physician following an emergency department visit to inform them of the circumstance of the visit and for follow-up with them and/or the need for any referrals to a consulting specialist. The emergency department will also refer you to a specialist when appropriate. This referral assures that you have the opportunity for follow-up care with a specialist. All of these measure are taken in an effort to provide you with optimal care, which includes your follow-up. Under all circumstances we always encourage you to contact your private physician who remains a resource for coordinating your care. When calling for follow-up care, please make the office aware that this follow-up is from your recent emergency room visit. If for any reason you are refused follow-up, please contact the [facility] Emergency Department at and asked to speak to the emergency department charge nurse. [facility] - Primary Care [address] [place] [address] [id number] [address] [address] Sepsis Event Note (ED) - Evaluation Sepsis Screening Result: No Definite Risk - Focused Exam Vital Signs: Vital Signs Temp Pulse Resp BP Pulse Ox 10/26/20 00:19 98.0 F 64 20 122/74 99
== END 2020-10-26 01:25 | disposition home or self-care (01) ==
LOC: MW.ED 00:06
DX: U07.1 COVID-19 (principal)
CPT/HCPCS: 81003; 81025; 99282; 99284; U0002

== ENCOUNTER 2021-01-03 21:27 | Emergency (ER) | payer MEDICAID ==
[2021-01-03] MEDS ORDERED: Sodium Chloride 0.9% 1,000 ML IV ONE (21:43)
[2021-01-03] MEDS ORDERED: Sodium Chloride 0.9% 2.5 ML Syringe FLUSH PRN (21:43)
[2021-01-03] MEDS ORDERED: Sodium Chloride 0.9% 10 ML Syringe FLUSH PRN (21:43)
--- NOTE | 2021-01-03 21:48 | EDM.PDOC ---
ED HPI GENERAL MEDICAL PROBLEM - General Chief Complaint: Gastrointestinal Problem Stated Complaint: 11 WEEKS , NAUSEOUS Time Seen by Provider: 01/03/21 21:28 Source of Information: Reports: Patient - History of Present Illness INITIAL COMMENTS - FREE TEXT/NARRATIVE: History of present illness: 20-year-old female presenting with lower abdominal cramping and nausea for the last few days, worsening tonight. She is 11 weeks . LMP October 17, 2020. . she has not yet had an ultrasound done although her TOOL PROCUREMENT COORDINATOR doc is at [facility]. She was told to take B6 for the nausea but that has not helped. She feels that today she has been unable to keep down fluids. She reports lower abdominal pain ongoing every day the last 2 to 3 days. She also does report some vaginal discharge but no vaginal bleeding. Review of systems: As per history of present illness and below otherwise all systems reviewed and negative. Past medical history: As per history of present illness and as reviewed below otherwise noncontributory. Surgical history: As per history of present illness and as reviewed below otherwise noncontributory. Social history: No reported history of drug or alcohol abuse. Family history: As per history of present illness and as reviewed below otherwise noncontributory. Physical exam: GEN: no acute distress, well appearing HEENT: Atraumatic, normocephalic, mucous membranes moist, Neck: supple, nontender, trachea midline. Lungs: No respiratory distress. Heart: RRR Abdomen: Soft, nondistended, nontender. No rebound or guarding. No tenderness on examination, she reports pain only without tenderness /pelvic: with ROSA Donovan film washer. Thin whitish discharge, no cervical erythema, no cervical motion tenderness. No adnexal mass or tenderness. Os is closed. No bleeding. Back: nontender Extremities: Atraumatic. Neurovascularly intact. Neuro: Awake, alert, oriented. Neuro Exam nonfocal. Skin: warm, dry, no lesions Diagnostics: Labs, hCG quant, ABO Rh, transvaginal ultrasound to assess for IUP UA appears to show UTI. Pelvic exam swab positive for yeast, negative for trichomonas or BV/clue cells. Ultrasound: Ultrasound OB pelvis transvaginal. Real time vyas scale imaging of the pelvis was performed. Rh+/B+ blood type COMPARISON: None FINDINGS: Gestational sac: Sonographic imaging demonstrates a single intrauterine gestation with a normal appearance. No evidence of a perigestational hemorrhage is seen. The amount of fluid within the sac appears appropriate for gestational age. Fetus: The embryo demonstrates a regular cardiac rate measuring 144 beats per minute. The embryo`s crown rump length measurement of 34 mm corresponds to a gestational age of 10 weeks, 3 days. There are no gross abnormalities noted within the embryo at this early state of development. There is a normal appearing yolk sac. Placenta: The placenta has not yet developed. Pelvis: The visualized cervix is closed. The visualized myometrium appears normal. There is a small follicle cyst present within the right ovary and the left ovary is unremarkable. No significant ascites noted. IMPRESSION: 1. Single viable intrauterine with an estimated gestational age of 10 weeks, 3 days. Therapeutics: IVF MDM: 10-week 3-day confirmed IUP on ultrasound here today. No distress. No vaginal bleeding. The patient improved after IV fluids. UA does show bacteria and therefore will treat with Augmentin. Genital cultures also showed yeast and will treat with topical clotrimazole. Impression: Intrauterine , UTI in , vaginal candidiasis. Plan: [] Definitive disposition and diagnosis as appropriate pending reevaluation and review of above. lower abdominal area Pain Score (Numeric/FACES): 7 - Related Data Allergies Allergy/AdvReac Type Severity Reaction Status Date / Time No Known Allergies Allergy Verified 01/03/21 21:47 Home Meds: Home Meds Amoxicillin/Potassium Clav [Augmentin 875-125 Tablet] 1 each PO BID #20 tablet 01/04/21 [Rx] Clotrimazole [Clotrimazole 1%] 1 appful VAG BEDTIME 7 Days #15 gm 01/04/21 [Rx] Past Medical History HEENT History: Reports: None Cardiovascular History: Reports: None Respiratory History: Reports: Asthma Gastrointestinal History: Reports: Other (See Below) Other Gastrointestinal History: LLQ Teratoma Genitourinary History: Reports: None TOOL PROCUREMENT COORDINATOR History: Reports: None 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 Musculoskeletal History: Reports: None Neurological History: Reports: None Psychiatric History: Reports: None Endocrine/Metabolic History: Reports: None Hematologic History: Reports: None Immunologic History: Reports: None Oncologic (Cancer) History: Reports: None Dermatologic History: Reports: None - Infectious Disease History Infectious Disease History: Reports: None - Past Surgical History Head Surgeries/Procedures: Reports: None HEENT Surgical History: Reports: None Cardiovascular Surgical History: Reports: None Respiratory Surgical History: Reports: None GI Surgical History: Reports: None Female Surgical History: Reports: None Endocrine Surgical History: Reports: None Neurological Surgical History: Reports: None Musculoskeletal Surgical History: Reports: None Oncologic Surgical History: Reports: None Dermatological Surgical History: Reports: None Social & Family History - Family History Family Medical History: No Pertinent Family History - Caffeine Use Caffeine Use: Reports: None ED ROS GENERAL - Review of Systems Review Of Systems: See Below (See dictation) ED EXAM, GENERAL - Physical Exam Exam: See Below (See dictation) Course - Vital Signs Last Recorded V/S: Last Vital Signs Temp 97.3 F 01/04/21 03:16 Pulse 69 01/04/21 03:16 Resp 18 01/04/21 03:16 BP 110/69 01/04/21 03:16 Pulse Ox 97 01/04/21 03:16 - Orders/Labs/Meds Orders: Active Orders 24 hr Category Date Time Status CHLAMYDIA AND GONORRHEA BY TMA Stat Lab 01/03/21 21:44 Received Saline Lock Insert [OM.PC] Stat Oth 01/03/21 21:43 Ordered Labs: Laboratory Tests 01/03/21 01/03/21 01/03/21 Range/Units 21:55 21:55 21:55 WBC 10.22 (4.0-11.0) K/uL RBC 3.92 L (4.30-5.90) M/uL Hgb 11.9 L (12.0-16.0) g/dL Hct 33.5 L (36.0-46.0) % MCV 85.5 (80.0-98.0) fL MCH 30.4 (27.0-32.0) pg MCHC 35.5 (31.0-37.0) g/dL RDW Std Deviation 41.6 (28.0-62.0) fl RDW Coeff of Molly 13 (11.0-15.0) % Plt Count 258 (150-400) K/uL MPV 9.80 (7.40-12.00) fL Neut % (Auto) 72.4 (48.0-80.0) % Lymph % (Auto) 18.4 (16.0-40.0) % Brooks % (Auto) 8.2 (0.0-15.0) % Eos % (Auto) 0.8 (0.0-7.0) % Baso % (Auto) 0.2 (0.0-1.5) % Neut # (Auto) 7.4 H (1.4-5.7) K/uL Lymph # (Auto) 1.9 (0.6-2.4) K/uL Brooks # (Auto) 0.8 (0.0-0.8) K/uL Eos # (Auto) 0.1 (0.0-0.7) K/uL Baso # (Auto) 0.0 (0.0-0.1) K/uL Nucleated RBC % 0.0 /100WBC Nucleated RBCs # 0 K/uL Sodium 136 (136-145) mmol/L Potassium 4.1 (3.5-5.1) mmol/L Chloride 102 (98-107) mmol/L Carbon Dioxide 27.0 (21.0-32.0) mmol/L BUN 6 L (7.0-18.0) mg/dL Creatinine 0.7 (0.6-1.0) mg/dL Est Cr Clr Drug Dosing 133.98 mL/min Estimated GFR (MDRD) > 60.0 ml/min Glucose 81 (74-106) mg/dL Calcium 8.7 (8.5-10.1) mg/dL Total Bilirubin 0.3 (0.2-1.0) mg/dL AST 36 (15-37) IU/L ALT 83 H (14-63) IU/L Alkaline Phosphatase 72 (46-116) U/L Total Protein 6.7 (6.4-8.2) g/dL Albumin 3.2 L (3.4-5.0) g/dL Globulin 3.5 (2.6-4.0) g/dL Albumin/Globulin Ratio 0.9 (0.9-1.6) HCG, Quant 208142.0 mIU/mL Urine Color Urine Appearance Urine pH (5.0-8.0) Ur Specific [place] (1.001-1.035) Urine Protein (NEGATIVE) mg/dL Urine Glucose (UA) (NEGATIVE) mg/dL Urine Ketones (NEGATIVE) mg/dL Urine Occult Blood (NEGATIVE) Urine Nitrite (NEGATIVE) Urine Bilirubin (NEGATIVE) Urine Urobilinogen (<2.0) EU/dL Ur Leukocyte Esterase (NEGATIVE) Urine RBC (0-2/HPF) Urine WBC (0-5/HPF) Ur Epithelial Cells (NONE-FEW) Amorphous Sediment (NEGATIVE) Urine Bacteria (NEGATIVE) Urine Mucus (NONE-MOD) Sarah species DNA (NEGATIVE) Gardnerella DNA Probe (NEGATIVE) Trichomonas DNA Probe (NEGATIVE) Blood Type B POSITIVE 01/03/21 01/04/21 Range/Units 22:50 02:05 WBC (4.0-11.0) K/uL RBC (4.30-5.90) M/uL Hgb (12.0-16.0) g/dL Hct (36.0-46.0) % MCV (80.0-98.0) fL MCH (27.0-32.0) pg MCHC (31.0-37.0) g/dL RDW Std Deviation (28.0-62.0) fl RDW Coeff of Molly (11.0-15.0) % Plt Count (150-400) K/uL MPV (7.40-12.00) fL Neut % (Auto) (48.0-80.0) % Lymph % (Auto) (16.0-40.0) % Brooks % (Auto) (0.0-15.0) % Eos % (Auto) (0.0-7.0) % Baso % (Auto) (0.0-1.5) % Neut # (Auto) (1.4-5.7) K/uL Lymph # (Auto) (0.6-2.4) K/uL Brooks # (Auto) (0.0-0.8) K/uL Eos # (Auto) (0.0-0.7) K/uL Baso # (Auto) (0.0-0.1) K/uL Nucleated RBC % /100WBC Nucleated RBCs # K/uL Sodium (136-145) mmol/L Potassium (3.5-5.1) mmol/L Chloride (98-107) mmol/L Carbon Dioxide (21.0-32.0) mmol/L BUN (7.0-18.0) mg/dL Creatinine (0.6-1.0) mg/dL Est Cr Clr Drug Dosing mL/min Estimated GFR (MDRD) ml/min Glucose (74-106) mg/dL Calcium (8.5-10.1) mg/dL Total Bilirubin (0.2-1.0) mg/dL AST (15-37) IU/L ALT (14-63) IU/L Alkaline Phosphatase (46-116) U/L Total Protein (6.4-8.2) g/dL Albumin (3.4-5.0) g/dL Globulin (2.6-4.0) g/dL Albumin/Globulin Ratio (0.9-1.6) HCG, Quant mIU/mL Urine Color YELLOW Urine Appearance SLT CLOUDY Urine pH 6.5 (5.0-8.0) Ur Specific [place] 1.020 (1.001-1.035) Urine Protein NEGATIVE (NEGATIVE) mg/dL Urine Glucose (UA) NEGATIVE (NEGATIVE) mg/dL Urine Ketones NEGATIVE (NEGATIVE) mg/dL Urine Occult Blood NEGATIVE (NEGATIVE) Urine Nitrite NEGATIVE (NEGATIVE) Urine Bilirubin NEGATIVE (NEGATIVE) Urine Urobilinogen 0.2 (<2.0) EU/dL Ur Leukocyte Esterase TRACE H (NEGATIVE) Urine RBC 0-2 (0-2/HPF) Urine WBC 3-6 (0-5/HPF) Ur Epithelial Cells MODERATE (NONE-FEW) Amorphous Sediment MODERATE (NEGATIVE) Urine Bacteria 2+ H (NEGATIVE) Urine Mucus LIGHT (NONE-MOD) Sarah species DNA POSITIVE H (NEGATIVE) Gardnerella DNA Probe NEGATIVE (NEGATIVE) Trichomonas DNA Probe NEGATIVE (NEGATIVE) Blood Type Meds: Medications Discontinued Medications Generic Name Dose Route Start Last Admin Trade Name Freq PRN Reason Stop Dose Admin Amoxicillin/Clavulanate Potassium 1 tab 01/04/21 02:06 01/04/21 02:16 Amoxicillin/Clavulanate K 875-125 Mg Tab PO 01/04/21 02:07 1 tab ONETIME ONE Administration Sodium Chloride 1,000 mls @ 999 mls/hr 01/03/21 21:43 01/03/21 22:01 Normal Saline IV 01/03/21 22:43 999 mls/hr .Bolus ONE Administration Sodium Chloride 10 ml 01/03/21 21:43 Sodium Chloride 0.9% 10 Ml Syringe FLUSH ASDIRECTED PRN Keep Vein Open Sodium Chloride 2.5 ml 01/03/21 21:43 Sodium Chloride 0.9% 2.5 Ml Syringe FLUSH ASDIRECTED PRN Keep Vein Open - Re-Assessments/Exams Free Text/Narrative Re-Assessment/Exam: 01/04/21 02:07 Results and plan of care discussed with patient. She is feeling much better. Discussed plan for outpatient follow-up and need for antibiotics for possible UTI. She agrees with this plan. 01/04/21 03:15 Vaginal swab results discussed with the patient. Positive for Sraah. As the patient is and in first trimester, will treat with topical clotrimazole instead of p.o. Diflucan. Discussed this with the patient. Stable for dis charge. Departure - Departure Time of Disposition: 03:15 Disposition: Home, Self-Care 01 Clinical Impression: UTI in , Vulvovaginal candidiasis - Discharge Information Prescriptions: Amoxicillin/Potassium Clav [Augmentin 875-125 Tablet] 1 each PO BID #20 tablet Clotrimazole [Clotrimazole 1%] 1 appful VAG BEDTIME 7 Days #15 gm Instructions: Vaginal Yeast Infection, Adult, Urinary Tract Infection, Adult, [id number], and Urinary Tract Infection Referrals: Tena Preciado DO [Primary Care Provider] - 2 Days Forms: ED Department Discharge Additional Instructions: The following information is given to patients seen in the emergency department who are being discharged to home. This information is to outline your options for follow-up care. We provide all patients seen in our emergency department with a follow-up referral. The need for follow-up, as well as the timing and circumstances, are variable depending upon the specifics of your emergency department visit. If you don't have a primary care physician on staff, we will provide you with a referral. We always advise you to contact your personal physician following an emergency department visit to inform them of the circumstance of the visit and for follow-up with them and/or the need for any referrals to a consulting specialist. The emergency department will also refer you to a specialist when appropriate. This referral assures that you have the opportunity for follow-up care with a specialist. All of these measure are taken in an effort to provide you with optimal care, which includes your follow-up. Under all circumstances we always encourage you to contact your private physician who remains a resource for coordinating your care. When calling for follow-up care, please make the office aware that this follow-up is from your recent emergency room visit. If for any reason you are refused follow-up, please contact the [facility] Emergency Department at and asked to speak to the emergency department charge nurse. Please follow-up with your TOOL PROCUREMENT COORDINATOR physician at [address] [id number] Sepsis Event Note (ED) - Focused Exam Vital Signs: Vital Signs Temp Pulse Resp BP Pulse Ox 01/04/21 03:16 97.3 F 69 18 110/69 97 01/04/21 00:45 68 18 100/55 L 97 01/03/21 21:40 97.2 F 88 18 120/60 97 - My Orders Last 24 Hours: My Active Orders 01/03/21 21:43 Saline Lock Insert [OM.PC] Stat 01/03/21 21:44 CHLAMYDIA AND GONORRHEA BY TMA Stat - Assessment/Plan Last 24 Hours: My Active Orders 01/03/21 21:43 Saline Lock Insert [OM.PC] Stat 01/03/21 21:44 CHLAMYDIA AND GONORRHEA BY TMA Stat
[2021-01-03 22:49] LABS: BLOOD UREA NITROGEN,BUN 6 mg/dL (7.0-18.0); CHLORIDE,CL 102 mmol/L (98-107); GLUCOSE RANDOM 81 mg/dL (74-106); POTASSIUM,K 4.1 mmol/L (3.5-5.1); SODIUM,NA 136 mmol/L (136-145)
--- NOTE | 2021-01-03 23:23 | US ---
INDICATION: Vaginal spotting with pelvic cramping TECHNIQUE: Ultrasound OB pelvis transvaginal. Real time vyas scale imaging of the pelvis was performed. COMPARISON: None FINDINGS: Gestational sac: Sonographic imaging demonstrates a single intrauterine gestation with a normal appearance. No evidence of a perigestational hemorrhage is seen. The amount of fluid within the sac appears appropriate for gestational age. Fetus: The embryo demonstrates a regular cardiac rate measuring 144 beats per minute. The embryo`s crown rump length measurement of 34 mm corresponds to a gestational age of 10 weeks, 3 days. There are no gross abnormalities noted within the embryo at this early state of development. There is a normal appearing yolk sac. Placenta: The placenta has not yet developed. Pelvis: The visualized cervix is closed. The visualized myometrium appears normal. There is a small follicle cyst present within the right ovary and the left ovary is unremarkable. No significant ascites noted. IMPRESSION: 1. Single viable intrauterine with an estimated gestational age of 10 weeks, 3 days. Dictated by Raleigh Perez MD @ 01/03/2021 11:22:31 PM Dictated by: Raleigh Perez MD @ 01/03/2021 23:22:37 (Electronically Signed)
[2021-01-04] MEDS ORDERED: Amoxicillin/Clavulanate K 875-125 MG Tab PO ONE (02:06)
[2021-01-05 13:06] LABS: C.TRACHOMATIS BY TMA Negative (Negative); N.GONORRHOEAE BY TMA Negative (Negative)
== END 2021-01-04 03:40 | disposition home or self-care (01) ==
LOC: MW.ED 21:27
DX: O23.41 Unspecified infection of urinary tract in pregnancy, first trimester (principal); B37.3 Candidiasis of vulva and vagina; O99.511 Diseases of the respiratory system complicating pregnancy, first trimester; J45.909 Unspecified asthma, uncomplicated; Z3A.10 10 weeks gestation of pregnancy
CPT/HCPCS: 36415; 76801; 80053; 81001; 84702; 85025; 86900; 86901; 87480; 87491; 87510; 87591; 87660; 99284; A9270; J7030

== ENCOUNTER 2021-01-13 12:40 | Emergency (ER) | payer MEDICAID ==
[2021-01-13] MEDS ORDERED: Sodium Chloride 0.9% 10 ML Syringe FLUSH PRN (13:02)
[2021-01-13] MEDS ORDERED: Sodium Chloride 0.9% 2.5 ML Syringe FLUSH PRN (13:02)
--- NOTE | 2021-01-13 13:05 | EDM.PDOC ---
ED HPI GENERAL MEDICAL PROBLEM - General Chief Complaint: Abdominal Pain Stated Complaint: L SIDE PAINS/PREG @ 12WEEKS Time Seen by Provider: 01/13/21 12:44 - History of Present Illness INITIAL COMMENTS - FREE TEXT/NARRATIVE: History of present illness: [] The patient reports she has 2 days of pain in the left flank. It radiates to the left anterior upper abdomen. The pain is feeling like somebody kicked or punched her in that area. Its worse when she moves. She is 12 weeks . 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 She has been spotting today. She is a Ab2. Review of systems: As per history of present illness and below otherwise all systems reviewed and negative. Past medical history: As per history of present illness and as reviewed below otherwise noncontributory. Surgical history: As per history of present illness and as reviewed below otherwise noncontributory. Social history: No reported history of drug or alcohol abuse. Family history: As per history of present illness and as reviewed below otherwise noncontributory. Physical exam: Constitutional - well developed, well-nourished and in no acute distress HEENT - normocephalic, no evidence of trauma - external nose and mouth normal - no mass in neck and no JVD - mucosae moist EYES - full EOM, PERRL, no icterus - no evidence of inflammation, injection, or drainage Respiratory - no respiratory distress, equal bilateral expansion, lungs clear to auscultation and no abnormal lung sounds Cardiovascular - Regular Rhythm with S1 and S2 appreciated and no murmur, gallop or rub. GI - abdomen soft without distension or organomegaly - normal bowel sounds - no guard or rebound Musculoskeletal no gross deformity of long bones or joints - no tenderness, swelling or edema Neurologic - Alert and oriented times four - CN II-XII grossly intact - motor sensory and coordination symmetrically normal Psychiatric - appropriate mood and affect with normal thought content Hematologic - No petechiae or purpura - mucosa appropriate color and sclera not pale - normal nail bed color and refill Integument - no rash or evidence of trauma - normal turgor Diagnostics: [] Therapeutics: [] Impression: [] Plan: [] Definitive disposition and diagnosis as appropriate pending reevaluation and review of above. Left Abdomen Pain Score (Numeric/FACES): 7 - Related Data Allergies Allergy/AdvReac Type Severity Reaction Status Date / Time No Known Allergies Allergy Verified 01/13/21 12:51 Home Meds: Home Meds Amoxicillin/Potassium Clav [Augmentin 875-125 Tablet] 1 each PO BID #20 tablet 01/04/21 [Rx] Clotrimazole [Clotrimazole 1%] 1 appful VAG BEDTIME 7 Days #15 gm 01/04/21 [Rx] Sertraline [Zoloft] 50 mg PO DAILY 01/13/21 [History] hydrOXYzine HCL [hydrOXYzine] 25 mg PO DAILY 01/13/21 [History] ondansetron HCL [Zofran] 4 mg PO ASDIRECTED 01/13/21 [History] Past Medical History HEENT History: Reports: None Cardiovascular History: Reports: None Respiratory History: Reports: Asthma Gastrointestinal History: Reports: Other (See Below) Other Gastrointestinal History: LLQ Teratoma Genitourinary History: Reports: None FORMING OPERATOR History: Reports: None 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 Musculoskeletal History: Reports: None Neurological History: Reports: None Psychiatric History: Reports: Anxiety, Depression Endocrine/Metabolic History: Reports: None Insulin Pump Model and Harvest Worker: None Hematologic History: Reports: None Immunologic History: Reports: None Oncologic (Cancer) History: Reports: None Dermatologic History: Reports: None - Infectious Disease History Infectious Disease History: Reports: None - Past Surgical History Head Surgeries/Procedures: Reports: None HEENT Surgical History: Reports: None Cardiovascular Surgical History: Reports: None Respiratory Surgical History: Reports: None GI Surgical History: Reports: None Female Surgical History: Reports: None Endocrine Surgical History: Reports: None Neurological Surgical History: Reports: None Musculoskeletal Surgical History: Reports: None Oncologic Surgical History: Reports: None Dermatological Surgical History: Reports: None Social & Family History - Family History Family Medical History: No Pertinent Family History - Tobacco Use Tobacco Use Status *Q: Never Tobacco User - Caffeine Use Caffeine Use: Reports: None - Recreational Drug Use Recreational Drug Use: No ED ROS GENERAL - Review of Systems Review Of Systems: Comprehensive ROS is negative, except as noted in HPI. ED EXAM, GENERAL - Physical Exam Exam: See Below Free Text/Narrative:: My physical exam is in the HPI Course - Vital Signs Text/Narrative:: Being a non-smoker and not recently bedridden or operated on and having no history of DVT is low risk for pulmonary embolus and this appears to be musculoskeletal strain. Ultrasound cannot be done on the weekend at this institution unless its perceived is a life-threatening emergency. She will follow up with Shimon Strange. Last Recorded V/S: Last Vital Signs Temp 36.6 C 01/13/21 12:52 Pulse 96 01/13/21 12:52 Resp 16 01/13/21 12:52 BP 119/68 01/13/21 12:52 Pulse Ox 100 01/13/21 12:52 - Orders/Labs/Meds Orders: Active Orders 24 hr Category Date Time Status OB 1st Tri Sgl 1st Gest [US] Stat Exams 01/13/21 13:03 Stop Req Labs: Laboratory Tests 01/13/21 01/13/21 01/13/21 Range/Units 12:50 13:25 13:25 WBC 8.63 (4.0-11.0) K/uL RBC 4.12 L (4.30-5.90) M/uL Hgb 12.4 (12.0-16.0) g/dL Hct 35.5 L (36.0-46.0) % MCV 86.2 (80.0-98.0) fL MCH 30.1 (27.0-32.0) pg MCHC 34.9 (31.0-37.0) g/dL RDW Std Deviation 41.4 (28.0-62.0) fl RDW Coeff of Molly 13 (11.0-15.0) % Plt Count 221 (150-400) K/uL MPV 9.20 (7.40-12.00) fL Neut % (Auto) 76.5 (48.0-80.0) % Lymph % (Auto) 13.3 L (16.0-40.0) % [place] % (Auto) 9.3 (0.0-15.0) % Eos % (Auto) 0.8 (0.0-7.0) % Baso % (Auto) 0.1 (0.0-1.5) % Neut # (Auto) 6.6 H (1.4-5.7) K/uL Lymph # (Auto) 1.2 (0.6-2.4) K/uL [place] # (Auto) 0.8 (0.0-0.8) K/uL Eos # (Auto) 0.1 (0.0-0.7) K/uL Baso # (Auto) 0.0 (0.0-0.1) K/uL Nucleated RBC % 0.0 /100WBC Nucleated RBCs # 0 K/uL Sodium 137 (136-145) mmol/L Potassium 3.9 (3.5-5.1) mmol/L Chloride 104 (98-107) mmol/L Carbon Dioxide 25.8 (21.0-32.0) mmol/L BUN 6 L (7.0-18.0) mg/dL Creatinine 0.6 (0.6-1.0) mg/dL Est Cr Clr Drug Dosing 112.86 mL/min Estimated GFR (MDRD) > 60.0 ml/min Glucose 59 L (74-106) mg/dL Calcium 8.7 (8.5-10.1) mg/dL Total Bilirubin 0.2 (0.2-1.0) mg/dL AST 27 (15-37) IU/L ALT 43 (14-63) IU/L Alkaline Phosphatase 71 (46-116) U/L Total Protein 7.0 (6.4-8.2) g/dL Albumin 3.2 L (3.4-5.0) g/dL Globulin 3.8 (2.6-4.0) g/dL Albumin/Globulin Ratio 0.8 L (0.9-1.6) Lipase 101 (73-393) U/L Urine Color YELLOW Urine Appearance SLT CLOUDY Urine pH 7.0 (5.0-8.0) Ur Specific [place] 1.020 (1.001-1.035) Urine Protein NEGATIVE (NEGATIVE) mg/dL Urine Glucose (UA) NEGATIVE (NEGATIVE) mg/dL Urine Ketones NEGATIVE (NEGATIVE) mg/dL Urine Occult Blood NEGATIVE (NEGATIVE) Urine Nitrite NEGATIVE (NEGATIVE) Urine Bilirubin NEGATIVE (NEGATIVE) Urine Urobilinogen 0.2 (<2.0) EU/dL Ur Leukocyte Esterase SMALL H (NEGATIVE) Urine RBC 0-2 (0-2/HPF) Urine WBC 1-3 (0-5/HPF) Ur Epithelial Cells MODERATE (NONE-FEW) Amorphous Sediment MODERATE (NEGATIVE) Urine Bacteria FEW (NEGATIVE) Meds: Medications Discontinued Medications Generic Name Dose Route Start Last Admin Trade Name Freq PRN Reason Stop Dose Admin Sodium Chloride 10 ml 01/13/21 13:02 Sodium Chloride 0.9% 10 Ml Syringe FLUSH ASDIRECTED PRN Keep Vein Open Sodium Chloride 2.5 ml 01/13/21 13:02 Sodium Chloride 0.9% 2.5 Ml Syringe FLUSH ASDIRECTED PRN Keep Vein Open Departure - Departure Time of Disposition: 14:03 Disposition: Home, Self-Care 01 Condition: Good Clinical Impression: Back strain - Discharge Information Instructions: Muscle Strain, [id number] Referrals: Tena Preciado DO [Primary Care Provider] - Forms: ED Department Discharge Additional Instructions: [facility] [address] [place] [id number] [facility] [address] [place] [id number] The following information is given to patients seen in the emergency department who are being discharged to home. This information is to outline your options for follow-up care. We provide all patients seen in our emergency department with a follow-up referral. The need for follow-up, as well as the timing and circumstances, are variable depending upon the specifics of your emergency department visit. If you don't have a primary care physician on staff, we will provide you with a referral. We always advise you to contact your personal physician following an emergency department visit to inform them of the circumstance of the visit and for follow-up with them and/or the need for any referrals to a consulting specialist. The emergency department will also refer you to a specialist when appropriate. This referral assures that you have the opportunity for follow-up care with a specialist. All of these measure are taken in an effort to provide you with o ptimal care, which includes your follow-up. Under all circumstances we always encourage you to contact your private physician who remains a resource for coordinating your care. When calling for follow-up care, please make the office aware that this follow-up is from your recent emergency room visit. If for any reason you are refused follow-up, please contact the [facility] Emergency Department at and asked to speak to the emergency department charge nurse. Sepsis Event Note (ED) - Evaluation Sepsis Screening Result: No Definite Risk - Focused Exam Vital Signs: Vital Signs Temp Pulse Resp BP Pulse Ox 01/13/21 12:52 36.6 C 96 16 119/68 100 - My Orders Last 24 Hours: My Active Orders 01/13/21 13:03 OB 1st Tri Sgl 1st Gest [US] Stat - Assessment/Plan Last 24 Hours: My Active Orders 01/13/21 13:03 OB 1st Tri Sgl 1st Gest [US] Stat
[2021-01-13 13:53] LABS: BLOOD UREA NITROGEN,BUN 6 mg/dL (7.0-18.0); CARBON DIOXIDE,CO2 25.8 mmol/L (21.0-32.0); CHLORIDE,CL 104 mmol/L (98-107); GLUCOSE RANDOM 59 mg/dL (74-106); LIPASE 101 U/L (73-393); POTASSIUM,K 3.9 mmol/L (3.5-5.1); SODIUM,NA 137 mmol/L (136-145)
== END 2021-01-13 14:17 | disposition home or self-care (01) ==
LOC: MW.ED 12:40
DX: O9A.23 Injury, poisoning and certain other consequences of external causes complicating the puerperium (principal); S39.012A Strain of muscle, fascia and tendon of lower back, initial encounter; Z3A.12 12 weeks gestation of pregnancy; X58.XXXA Exposure to other specified factors, initial encounter
CPT/HCPCS: 36415; 80053; 81001; 83690; 85025; 99284

== ENCOUNTER 2023-11-30 06:57 | Emergency (ER) | payer MEDICAID ==
[2023-11-30] MEDS: Lidocaine 1% PF 2 ML SDV ONE (07:47)
== END 2023-11-30 08:13 | disposition home or self-care (01) ==
LOC: MW.ED 06:57
DX: T16.2XXA Foreign body in left ear, initial encounter (principal); Z75.8 Other problems related to medical facilities and other health care; Z79.899 Other long term (current) drug therapy; W44.8XXA Other foreign body entering into or through a natural orifice, initial encounter
CPT/HCPCS: 69200; 99282-25; 99283; J3490

== ENCOUNTER 2024-03-28 12:02 | Emergency (ER) | payer MEDICAID ==
[2024-03-28] MEDS: Ketorolac 30 MG/ML SDV IVPUSH ONE (12:56)
[2024-03-28] MEDS: Sodium Chloride 0.9% 1,000 ML IV STA (12:56)
[2024-03-28 13:52] LABS: CORONAVIRUS COVID-19 NAA NEGATIVE (NEGATIVE); INFLUENZA A NAA NEGATIVE (NEGATIVE); INFLUENZA B NAA NEGATIVE (NEGATIVE)
== END 2024-03-28 14:03 | disposition home or self-care (01) ==
LOC: MW.ED 12:02
DX: R51.9 Headache, unspecified (principal); J45.909 Unspecified asthma, uncomplicated; Z79.899 Other long term (current) drug therapy; Z75.8 Other problems related to medical facilities and other health care
CPT/HCPCS: 0240U; 96361; 96374; 99284; J1885; J7030

== ENCOUNTER 2024-06-14 06:35 | Emergency (ER) | payer BC, MEDICAID | END 2024-06-14 08:04 | disposition home or self-care (01) | LOC: MW.ED 06:35 | DX: K52.9 Noninfective gastroenteritis and colitis, unspecified (principal); J45.909 Unspecified asthma, uncomplicated; Z79.899 Other long term (current) drug therapy | CPT/HCPCS: 87428-QW; 99284 ==